=== PATIENT | female | born 1995 | race Caucasian/White ===

== ENCOUNTER → 2017-11-07 | Outpatient (CLI) | payer OTHER | END | disposition home or self-care (01) | LOC: C.LABSPEC 17:58 | PROVIDERS: ATTEND Physician Assistant | DX: Z12.4 Encounter for screening for malignant neoplasm of cervix (principal) ==

== ENCOUNTER → 2017-11-07 | Outpatient (CLI) | payer OTHER | END | disposition home or self-care (01) | LOC: C.PAPS 09:30 | PROVIDERS: ATTEND Physician Assistant | DX: Z01.419 Encounter for gynecological examination (general) (routine) without abnormal findings (principal) ==

== ENCOUNTER 2020-06-20 07:31 | Inpatient (IN) ==
[2020-06-20] MEDS ORDERED: OXYTOCIN 30 UNITS/500 ML BAG IV PRN ×3 (07:56→19:05)
[2020-06-20 08:14] LABS: Hematocrit (blood only) 35.3 % (37-47); Hemoglobin 12.5 g/dL (12.0-16.0); Mean Corpuscular Hemoglobin 32.3 pg (25-34); Mean Corpuscular Volume 91.2 fL (80-100); Mean Platelet Volume 10.9 fL (7.4-10.4); Platelet Count 133 K/uL (130-400); RDW Coefficient of Variation 13.2 % (11.5-14.5); RDW Standard Deviation 43.4 fL (36.4-46.3); Red Blood Count 3.87 M/uL (4.2-5.4); White Blood Count 8.63 K/uL (4.8-10.8)
[2020-06-20 08:18] LABS: Mean Corpuscular Hgb Conc 35.4 g/dL (32-36)
--- NOTE | 2020-06-20 08:20 | History & Physical Report ---
Date of Service June 20, 2020 Assessment & Plan (1) Active labor at term: PNL: Rh pos, RI, GBS neg, COVID neg Admit, labs, IV Epidural when desired; anesthesiology consult placed Proceed with induction of labor per Pitocin augmentation protocol. Anticipate (2) : Admission and Anticipated Discharge Date Admission Date: June 20, 2020 History of Present Illness Primary Care Provider: Everardo Hart is a 25 y/o female currently at 39 WGA with an AGUSTIN 06/27/20 as determined by LMP who is here for IOL due to LGA baby on US (EW 98%tile at 36 weeks). Patient is on 20mg Celexa po daily for a hx of depression. She has also been taking pNV, colace, and iron. Her is otherwise uncomplicated. + contractions started just prior to arrival; + movement; - fluid loss; - bloody show Had regular appointments with OB. Blood type: A+ Antibody screen: neg Labs 11/26/19 Rubella: Immune VDRL/RPR: nonreactive Gonorrhea: negative Chlamydia: negative HIV: negative HbSAg: negative GBS: Negative 05/30/20 COVID-19 negative 06/10/20 Other screens: cf/sma/panoram/quad declined Allergies Allergy/AdvReac Type Severity Reaction Status Date / Time No Known Allergies Allergy Verified 06/20/20 08:41 Home Medications Home Medications Medication Instructions Recorded Confirmed Type citalopram [Celexa] 20 mg PO DAILY 05/21/20 06/20/20 History vit no.[id number] 1 tab PO DAILY 05/21/20 06/20/20 History [ Vitamin] docusate sodium 100 mg capsule 100 mg PO DAILY 06/08/20 06/20/20 History ferrous sulfate 325 mg PO DAILY 06/08/20 06/20/20 History Patient History Medical History (Updated 06/20/20 @ 08:25 by Prisca Botello DO) Depression Encounter for anatomic survey Encounter for pre-operative examination Inguinal lymphadenopathy Nipple discharge Swollen lymph nodes Varicella vaccine Surgical History H/O lymph node biopsy (07/24/19) Right Inguinal Lymph Node Biopsy Dr. 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 Denies shortness of breath or cough. Denies chest pain. Denies breast pain. Denies dysuria or hematuria. Denies leg pain or leg swelling. Denies headache or changes in vision. Physical Exam Physical Exam: General: Alert, oriented. No acute distress. Cardiac: Regular rate and rhythm, no murmurs/rubs/gallops. Respiratory: Clear to auscultation bilaterally a/p, no wheezes/rales/rhonchi. No increased work of breathing. Symmetrical chest rise. No respiratory distress. Abdomen: Gravid. Vertex position. + heart tones. + palpable contractions. EFW 7-8# Pelvic: Dilation 3-4cm; Effacement 70%; Station -[address] Devlin External FHT and external uterine monitors used; Category I tracing; moderate FHT variability. Lower Extremities: No lower extremity edema or swelling. No deep calf pain. Results & Data ([facility]) Vital Signs (Past 12 Hours) Vital Signs Temp Pulse Resp BP 06/20/20 07:38 36.8 C 71 20 138/86 Laboratory Results Labs at admission today H.5 Hct: 35.3% WBC: 8.63 Plt: 133 Supervising Physician Co-Signing Physician Notes Resident Physician Supervision Note: I interviewed and examined the patient. Discussed with Dr. Botello and agree with findings and plan as documented in the note. Any exceptions or clarifications are listed here: Patient is a at 39 weeks here for elective induction for concern for LGA. Favorable cervix. Category one fetus. Plan pitocin induction, arom. epidural on demand. Anticipate . Documented By: Migdalia Arboleda MD, FACOG
[2020-06-20] MEDS: LACTATED RINGER'S 1,000 ML IV PRN ×2 (08:30→12:55)
[2020-06-20] MEDS ORDERED: fentaNYL 2MCG/ML ROPIV 1.25MG/ML 100 ML BAG EPI ONE (12:10)
[2020-06-20] MEDS ORDERED: BUPIVACAINE 0.25% 30 ML VIAL ONE (12:10)
[2020-06-20] MEDS ORDERED: fentaNYL citrate 100 MCG/2 ML VIAL ONE (12:10)
[2020-06-20] MEDS ORDERED: ePHEDrine sulfate 50 MG/ML AMP ONE (12:10)
--- NOTE | 2020-06-20 12:17 | Anesthesiology Consultation ---
Date of Service June 20, 2020 Assessment & Plan ASA ASA2 Proposed Anesthesia Anesthesia Type: General and Labor Epidural Risk / Benefits Reviewed With: PT / POA / Parent / Guardian, Accepts Plan and Informed Consent Obtained History Height/Weight Height: 5 ft 7.5 in Weight: 74.843 kg Allergies Allergy/AdvReac Type Severity Reaction Status Date / Time No Known Allergies Allergy Verified 06/20/20 08:41 Medications Home Medications Medication Instructions Recorded Confirmed Last Taken citalopram [Celexa] 20 mg PO DAILY 05/21/20 06/20/20 06/19/20 20:00 vit no.[id number] 1 tab PO DAILY 05/21/20 06/20/20 06/19/20 20:00 [ Vitamin] docusate sodium 100 mg capsule 100 mg PO DAILY 06/08/20 06/20/20 06/19/20 20:00 ferrous sulfate 325 mg PO DAILY 06/08/20 06/20/20 06/19/20 20:00 Active Medications Generic Name Dose Route Start Last Admin Trade Name Natanq PRN Reason Stop Dose Admin Lactated Ringer's 1,000 mls @ 125 mls/hr 06/20/20 07:56 06/20/20 12:55 Lr IV 06/22/20 07:55 125 mls/hr .Q8H PRN Administration L&D Protocol Protocol Oxytocin 30 units in 500 mls @ 9 mls/hr 06/20/20 07:56 06/20/20 10:45 Pitocin IV 06/22/20 07:55 0.54 units/hr .Q24H PRN 9 mls/hr Labor Induction/Augmentation Titration Protocol 0.54 UNITS/HR Past Medical History Medical History Depression Encounter for anatomic survey Encounter for pre-operative examination Inguinal lymphadenopathy Nipple discharge Swollen lymph nodes Varicella vaccine Exercise / Class Metabolic Activity II 4-5 Yardwork/Stairs/Walk up hill Past Family History Family History Grandmother (Maternal) Breast cancer Grandfather (Maternal) Diabetes Heart disease Myocardial infarction Grandmother (Paternal) Cancer vulvar Vulvar cancer Past Surgical History Surgical History H/O lymph node biopsy (07/24/19) Right Inguinal Lymph Node Biopsy Dr. Dunlap 07/24/19 History of excision of pilonidal cyst [place] teeth removed Past Anesthesia History No Hx of Anesthesia Complications and No Family Hx of Anesthesia Complications History of PONV No Hx of PONV and No Hx of Motion Sickness Social History Smoking Status: Never smoker Hx Alcohol Use: No Hx Substance Use: No substance use type: does not use Review of Systems denies fever/cough/ colds/ chest pain/ SOB/ YASH Constitutional: no fever and no chills Respiratory: no cough and no dyspnea denies YASH Cardiovascular: no chest pain and no dyspnea on exertion Physical Exam Vital Signs Last Vital Signs Temp 37.0 C 06/20/20 11:34 Pulse 76 06/20/20 12:15 Resp 20 06/20/20 11:34 BP 140/90 06/20/20 11:34 Pulse Ox 94 06/20/20 12:15 ENMT Mouth: no TMJ abnormality and no dentition abnormality Thyromental Distance: > or= 3.5 Finger Breadths Mallampati Class: II Neck neck extension not limited Respiratory normal respiratory effort; no respiratory distress Auscultation: lungs clear to auscultation bilaterally Cardiovascular Rate/Rhythm: regular rate and regular rhythm Neurologic moves all extremities Psychiatric Orientation: alert and oriented x 3 Testing Laboratory Results 06/20/20 08:03
[2020-06-20] MEDS ORDERED: ePHEDrine sulfate 50 MG/ML AMP IV PRN ×2 (13:32→13:33)
[2020-06-20] MEDS ORDERED: DiphenhydrAMINE HCL 50 MG/ML VIAL IV PRN ×2 (13:32→13:33)
[2020-06-20] MEDS ORDERED: fentaNYL 2MCG/ML ROPIV 1.25MG/ML 100 ML BAG EPI PRN ×2 (13:32→13:33)
[2020-06-20] MEDS ORDERED: NALOXONE HCL 0.4 MG/1 ML VIAL/CARP IV PRN ×2 (13:32→13:33)
[2020-06-20] MEDS ORDERED: NALOXONE HCL 1 MG in SODIUM CHLORIDE 0.9% 1000ML 1,000 ML IV PRN ×2 (13:32→13:33)
[2020-06-20] MEDS ORDERED: ONDANSETRON INJ 2 MG/ML 2 ML VIAL IV PRN ×2 (13:32→13:33)
--- NOTE | 2020-06-20 14:04 | Labor Progress Brief Note ---
Date of Service June 20, 2020 Subjective comfortable with epidural Assessment & Plan (1) Elective induction of labor planned: continue current management. fetus reassuring category one. anticipate . Admission and Anticipated Discharge Date Admission Date: June 20, 2020 Physical Exam Constitutional: WD/WN, vitals as above Psychiatric: A+Ox3, euthymic affect Genitourinary: cx--/-2 arom--copious clear toco--q2-3min, pit at 9 efm--130s wtih mod variability, accels to 150s, no decels Results & Data ([facility]) Vital Signs (Past 12 Hours) Vital Signs Temp Pulse Resp BP Pulse Ox 06/20/20 13:57 67 97 06/20/20 13:55 74 136/80 06/20/20 13:52 70 96 06/20/20 13:47 60 96 06/20/20 13:42 64 95 06/20/20 13:40 65 142/84 H 06/20/20 13:37 69 96 06/20/20 13:35 68 137/83 06/20/20 13:32 66 96 06/20/20 13:31 63 135/76 06/20/20 13:27 71 98 06/20/20 13:24 66 134/76 06/20/20 13:22 71 141/77 H 100 06/20/20 13:20 71 139/81 06/20/20 13:18 84 135/85 06/20/20 13:17 79 100 06/20/20 13:16 73 137/80 06/20/20 13:12 76 100 06/20/20 13:07 84 100 06/20/20 13:02 79 100 06/20/20 12:57 73 99 06/20/20 12:15 76 94 06/20/20 11:34 37.0 C 69 20 140/90 06/20/20 10:36 60 143/93 H 06/20/20 09:37 62 20 138/90 06/20/20 07:38 36.8 C 71 20 138/86 Coding Level of Care Code None Diagnoses Elective induction of labor planned
--- NOTE | 2020-06-20 17:05 | Labor Progress Brief Note ---
Date of Service June 20, 2020 Subjective Feeling some contractions Assessment & Plan (1) Elective induction of labor planned: begin stage 2, fetus category one. anticipate . Admission and Anticipated Discharge Date Admission Date: June 20, 2020 Physical Exam Constitutional: WD/WN, vitals as above Psychiatric: A+Ox3, euthymic affect Genitourinary: cx--c/c/+2-3 toco--q2min, pit at 9 efm--120s with mod variability, small accels , no decels Results & Data ([facility]) Vital Signs (Past 12 Hours) Vital Signs Temp Pulse Resp BP Pulse Ox 06/20/20 17:02 74 99 06/20/20 16:57 62 96 06/20/20 16:56 57 L 106/55 L 06/20/20 16:52 66 97 06/20/20 16:50 65 94 06/20/20 16:47 59 L 95 06/20/20 16:42 61 96 06/20/20 16:41 57 L 109/58 L 06/20/20 16:37 57 L 95 06/20/20 16:32 60 95 06/20/20 16:27 61 96 06/20/20 16:26 56 L 110/59 L 06/20/20 16:22 62 97 06/20/20 16:17 61 97 06/20/20 16:12 36.9 C 74 18 141/59 H 97 06/20/20 16:07 60 99 06/20/20 16:02 72 95 06/20/20 15:57 65 131/81 96 06/20/20 15:52 63 96 06/20/20 15:47 67 95 06/20/20 15:42 72 96 06/20/20 15:40 83 132/91 06/20/20 15:37 68 99 06/20/20 15:32 69 97 06/20/20 15:27 78 97 06/20/20 15:26 75 127/79 06/20/20 15:22 71 96 06/20/20 15:17 78 97 06/20/20 15:12 65 96 06/20/20 15:10 65 112/70 06/20/20 15:07 65 97 06/20/20 15:02 65 98 06/20/20 14:57 64 97 06/20/20 14:56 72 133/87 06/20/20 14:54 18 06/20/20 14:52 58 L 96 06/20/20 14:47 59 L 96 06/20/20 14:42 57 L 95 06/20/20 14:40 56 L 110/63 06/20/20 14:37 61 97 06/20/20 14:32 58 L 95 06/20/20 14:27 59 L 96 06/20/20 14:26 56 L 16 113/61 06/20/20 14:22 62 96 06/20/20 14:17 67 97 06/20/20 14:12 65 97 06/20/20 14:11 60 121/63 06/20/20 14:07 61 96 06/20/20 14:02 64 96 06/20/20 13:57 67 97 06/20/20 13:55 74 136/80 06/20/20 13:52 70 96 06/20/20 13:47 60 96 06/20/20 13:42 64 95 06/20/20 13:40 65 142/84 H 06/20/20 13:37 69 96 06/20/20 13:35 68 137/83 06/20/20 13:32 66 96 06/20/20 13:31 63 135/76 06/20/20 13:27 71 98 06/20/20 13:24 66 134/76 06/20/20 13:22 71 141/77 H 100 06/20/20 13:20 71 139/81 06/20/20 13:18 84 135/85 06/20/20 13:17 79 100 06/20/20 13:16 73 137/80 06/20/20 13:12 76 100 06/20/20 13:07 84 100 06/20/20 13:02 79 100 06/20/20 12:57 73 99 06/20/20 12:15 76 94 06/20/20 11:34 37.0 C 69 20 140/90 06/20/20 10:36 60 143/93 H 06/20/20 09:37 62 20 138/90 06/20/20 07:38 36.8 C 71 20 138/86 Coding Level of Care Code None Diagnoses Elective induction of labor planned
[2020-06-20] MEDS ORDERED: ACETAMINOPHEN 325 MG TAB PO PRN (18:38)
[2020-06-20] MEDS ORDERED: OXYCODONE/ACETAMINOPHEN 5mg/325mg TAB PO PRN (18:38)
--- NOTE | 2020-06-20 18:42 | Delivery Summary ---
Vaginal Delivery Summary Date of Service June 20, 2020 Vaginal Delivery Summary Pre-operative Diagnosis: at 39 weeks suspect lga baby Post-operative Diagnosis: same lga baby Procedure: pitocin induction epidural arom stellate vaginal tear and second degree tear with repair EBL: 450cc Anesthesia: epdural Procedure: The patient pushed for about 35 min to deliver a viable female infant in kalyani position. The nose and mouth were bulb suctioned on the perineum and the rest of the was then delivered without difficulty. The nose and mouth were again bulb suctioned and the was placed in the maternal abdomen for drying and attention. Cord was clamped and cut at 30 secs of life and the infant was then taken to the bed for drying and attention. Cord blood and segment obtained. Placenta delivered spontaneous, intact with a three vessel cord. Cervix/sulci/rectum were intact. A stellate vaginal tear and a second degree perineal laceration was repaired in the normal standard fashion. Hemostasis obtained with dilute pitocin and fundal massage. Apgars were 7/8. Mother and baby doing well at the end of the delivery. [facility] Vaginal Delivery Charge Vaginal Delivery Codes: 51945 global code for the antepartum, delivery, and post-
[2020-06-20] MEDS ORDERED: SUPERCREAM 0.870% 15 GM JAR EXT PRN (19:05)
[2020-06-20] MEDS ORDERED: DIPHTHERIA/TETANUS/PERTUSSIS 0.5 ML SYR/VIAL IM ONE (19:05)
[2020-06-20] MEDS ORDERED: bisacodyL 10 MG SUPP PR PRN (19:05)
[2020-06-20] MEDS ORDERED: HYDROCORTISONE ACETATE 25 MG SUPP PR PRN (19:05)
--- NOTE | 2020-06-20 19:07 | Anesthesiology Progress Note ---
Date of Service June 20, 2020 Anesthesia Post Procedure Vital Signs Vital Signs: Temp Pulse Resp BP Pulse Ox 06/20/20 19:01 79 121/71 06/20/20 18:46 77 122/74 06/20/20 18:31 80 117/69 06/20/20 18:16 88 112/65 06/20/20 18:15 92 H 91 06/20/20 18:12 77 100 06/20/20 18:10 70 122/68 06/20/20 18:07 70 99 06/20/20 18:02 80 100 06/20/20 17:57 93 H 100 06/20/20 17:55 82 120/55 L 06/20/20 17:52 90 100 06/20/20 17:47 93 H 98 06/20/20 17:42 106 H 94 06/20/20 17:40 118 H 133/62 06/20/20 17:37 112 H 99 06/20/20 17:32 101 H 100 06/20/20 17:27 94 H 100 06/20/20 17:22 88 99 06/20/20 17:19 91 H 91 06/20/20 17:17 89 99 06/20/20 17:14 94 H 92 06/20/20 17:12 85 99 06/20/20 17:11 80 131/83 06/20/20 17:07 92 H 100 06/20/20 17:02 74 99 06/20/20 16:57 62 96 06/20/20 16:56 57 L 18 106/55 L 06/20/20 16:52 66 97 06/20/20 16:50 65 94 06/20/20 16:47 59 L 95 06/20/20 16:42 61 96 06/20/20 16:41 57 L 109/58 L 06/20/20 16:37 57 L 95 06/20/20 16:32 60 95 06/20/20 16:27 61 96 06/20/20 16:26 56 L 110/59 L 06/20/20 16:22 62 97 06/20/20 16:17 61 97 06/20/20 16:12 36.9 C 74 18 141/59 H 97 06/20/20 16:07 60 99 06/20/20 16:02 72 95 06/20/20 15:57 65 131/81 96 06/20/20 15:52 63 96 06/20/20 15:47 67 95 06/20/20 15:42 72 96 06/20/20 15:40 83 132/91 06/20/20 15:37 68 99 06/20/20 15:32 69 97 06/20/20 15:27 78 97 06/20/20 15:26 75 127/79 06/20/20 15:22 71 96 06/20/20 15:17 78 97 06/20/20 15:12 65 96 06/20/20 15:10 65 112/70 06/20/20 15:07 65 97 06/20/20 15:02 65 98 06/20/20 14:57 64 97 06/20/20 14:56 72 133/87 06/20/20 14:54 18 06/20/20 14:52 58 L 96 06/20/20 14:47 59 L 96 06/20/20 14:42 57 L 95 06/20/20 14:40 56 L 110/63 06/20/20 14:37 61 97 06/20/20 14:32 58 L 95 06/20/20 14:27 59 L 96 06/20/20 14:26 56 L 16 113/61 06/20/20 14:22 62 96 06/20/20 14:17 67 97 06/20/20 14:12 65 97 06/20/20 14:11 60 121/63 06/20/20 14:07 61 96 06/20/20 14:02 64 96 06/20/20 13:57 67 97 06/20/20 13:55 74 136/80 06/20/20 13:52 70 96 06/20/20 13:47 60 96 06/20/20 13:42 64 95 06/20/20 13:40 65 142/84 H 06/20/20 13:37 69 96 06/20/20 13:35 68 137/83 06/20/20 13:32 66 96 06/20/20 13:31 63 135/76 06/20/20 13:27 71 98 06/20/20 13:24 66 134/76 06/20/20 13:22 71 141/77 H 100 06/20/20 13:20 71 139/81 06/20/20 13:18 84 135/85 06/20/20 13:17 79 100 06/20/20 13:16 73 137/80 06/20/20 13:12 76 100 06/20/20 13:07 84 100 06/20/20 13:02 79 100 06/20/20 12:57 73 99 06/20/20 12:15 76 94 06/20/20 11:34 37.0 C 69 20 140/90 06/20/20 10:36 60 143/93 H 06/20/20 09:37 62 20 138/90 06/20/20 07:38 36.8 C 71 20 138/86 Transfer of Care Handoff Completed per policy Notes Mental Status: alert / awake / arousable and participated in evaluation Patient Amnestic to Procedure: Yes Nausea / Vomiting: adequately controlled Pain: adequately controlled Airway Patency, RR, SpO2: stable & adequate BP & HR: stable & adequate Hydration State: stable & adequate Anesthetic Complications: no major complications apparent and Pt Satisfied with anesthetic care
[2020-06-20] MEDS: BENZOCAINE 20% AER SPR 82.5 GM CAN EXT PRN (20:19)
[2020-06-20] MEDS: IBUPROFEN 600 MG TAB PO PRN (20:19)
[2020-06-20] MEDS: DOCUSATE SODIUM 100 MG CAP PO SCH (20:19)
[2020-06-21] MEDS: IBUPROFEN 600 MG TAB PO PRN ×5 (00:14→18:00)
[2020-06-21 05:52] LABS: Hematocrit (blood only) 26.5 % (37-47); Hemoglobin 9.5 g/dL (12.0-16.0)
--- NOTE | 2020-06-21 06:42 | Obstetrical Progress Note ---
Date of Service <Prisca Botello DO - Last Filed: 06/21/20 07:21> June 21, 2020 Assessment & Plan <Prisca Botello DO - Last Filed: 06/21/20 07:21> (1) Normal course: - Overall feels well today. Eating well, voiding well. Pt has not yet ambulated independently. - Pain well controlled with ibuprofen 600mg Q4H PRN - Routinepostpartum care -- OOB, ambulation, diet progression as tolerated - After discharge will have 6 week follow-up with Dr. Arboleda - Plan for d/c home tomorrow (2) Positional lightheadedness: - Lightheadedness with changes in position - H/H was 9.5/26.5% this AM. Will start supplemental po Iron - Will continue to monitor patient Subjective <Prisca Botello DO - Last Filed: 06/21/20 07:21> Tatianna Hart is a 25 y/o female who is PPD #1 following IOL with epidural and at 39 weeks. Pt was induced due to LGA baby on u/s. She reports feeling well overall this morning. Minimal abdominal cramping and 3/10 pain well managed on analgesics. Voiding without dysuria or difficulty. Tolerating meals overnight without nausea or vomiting. Patient has been able to ambulate some but it is noted that she has experienced lightheadedness with changing position and ambulating. She did have a near-syncopal episode last night with the lightheadedness but pt denies syncope or LOC. + passing gas but no bowel movement. Has persistent lochia with some improvement this morning. Currently . Review of Systems Denies fever or chills. Denies shortness of breath or cough. Denies chest pain. Denies breast pain. Denies dysuria. Denies leg pain or leg swelling. + lightheadedness. Denies headache or changes in vision. Physical Exam <Prisca Botello DO - Last Filed: 06/21/20 07:21> General: Alert, oriented. No acute distress. Cardiac: Regular rate and rhythm. No murmurs. Respiratory: Clear to auscultation bilaterally a/p, no wheezes/rales/rhonchi. No increased work of breathing. Symmetrical chest rise. No respiratory distress. Abdomen: Soft, nontender, nondistended. Bowel sounds present. Uterus: Uterine fundus firm, palpable 2 cm above umbilicus. Lower Extremities: No lower extremity edema or swelling. No deep calf pain. Magui n's negative bilaterally. Results & Data ([facility]) <Prisca Botello DO - Last Filed: 06/21/20 07:21> Vital Signs (Past 12 Hours) Vital Signs Temp Pulse Pulse Resp BP BP Pulse Ox 06/21/20 03:30 36.9 C 65 18 127/85 97 06/20/20 23:25 36.8 C 73 16 118/77 96 06/20/20 20:50 37.0 C 79 16 123/80 99 06/20/20 20:16 37.0 C 94 H 18 124/81 06/20/20 20:01 74 16 122/71 06/20/20 19:47 80 18 123/70 06/20/20 19:16 80 18 126/73 06/20/20 19:01 79 16 121/71 06/20/20 18:46 77 122/74 Laboratory Results H/H 9.5/26.5% at 0536 this AM <Migdalia Arboleda MD, FACOG - Last Filed: 06/21/20 07:30> Co-Signing Physician Notes Resident Physician Supervision Note: I interviewed and examined the patient. Discussed with Dr. Botello and agree with findings and plan as documented in the note. Any exceptions or clarifications are listed here: Doing fairly well. patient has voided 800cc. Has not done well with standing and ambulating overnight. Will monitor closely today. Anticipated drop h/h. Documented By: Migdalia Arboleda MD, FACOG
[2020-06-21] MEDS ORDERED: PRENATAL VITAMIN 1 TAB PO SCH (08:00)
[2020-06-21] MEDS: DOCUSATE SODIUM 100 MG CAP PO SCH (08:18)
[2020-06-21] MEDS ORDERED: CITALOPRAM 20 MG TAB PO SCH (09:00)
[2020-06-21] MEDS ORDERED: FERROUS SULFATE 325 MG TAB PO SCH (09:00)
[2020-06-21 09:39] VITALS: O2SAT 100
[2020-06-21 16:37] VITALS: TEMP 98.4
[2020-06-21 16:49] VITALS: BP 131/81; PULSE 76
[2020-06-21] MEDS: BENZOCAINE 20% AER SPR 82.5 GM CAN EXT PRN (18:33)
--- NOTE | 2020-06-21 19:06 | Obstetrical Progress Note ---
Date of Service June 21, 2020 Assessment & Plan (1) exam: pt feels well and ready for d/c. bp looks good. she does have a nurse mother in law who can check her bp. told her s/sx to watch out for to call us re: need for office eval. she verbalized understanding. Admission and Anticipated Discharge Date Admission Date: June 20, 2020 Subjective pt desires d/c home, baby d/c'd per peds. doing well ambulating, no dizziness, voiding and eating fine. bleeding lessening. i had been notified nursing about an elevated bp and wanted bp checked prior to d/c. pt denies mariscal or visual change or worsening swelling Physical Exam Constitutional: WD/WN, vitals as above Results & Data ([facility]) Vital Signs (Past 12 Hours) Vital Signs Temp Pulse Resp BP Pulse Ox 06/21/20 17:05 98.4 F 76 18 131/81 100 06/21/20 16:48 76 131/81 06/21/20 16:00 98.4 F 68 18 144/90 H 100 06/21/20 11:30 98.2 F 64 18 137/87 100 06/21/20 07:45 98.1 F 78 18 129/82 100 PG Care Time/CCT Total # of Minutes Spent Total Time Spent with Patient: Total time spent is greater than 50% in coordination of care (as documented) at patient's floor/unit and/or counseling patient: Coding Level of Care Code None Diagnoses exam Z39.2
[2020-06-21] MEDS ORDERED: bisacodyL 5 MG TABEC PO SCH (20:00)
== END 2020-06-21 19:05 | disposition home or self-care (01) | DRG 807 ==
LOC: 4S1 07:31 → 4S2 21:42

== ENCOUNTER 2024-02-04 07:42 | Inpatient (IN) ==
[2024-02-04] MEDS ORDERED: LIDOCAINE 1% LOCAL 20 ML VIAL INFIL PRN (07:52)
[2024-02-04] MEDS ORDERED: OXYTOCIN 30 UNITS/NSS 30 UNITS/500 ML BAG IV PRN ×2 (07:52→19:21)
--- NOTE | 2024-02-04 08:25 | Obstetrical Progress Note ---
Date of Service February 04, 2024 Assessment & Plan (1) 39 weeks gestation of : (2) Non-dilated cervix in term : Plan sanchez ripening balloon placed after informed consent. pitocin ordered to begin now. pt and partner agreeable. efw 9#. fhts categ 1. Admission and Anticipated Discharge Date Admission Date: February 04, 2024 Subjective pt here for induction with unfavorable cx. prior LGA. Physical Exam Constitutional: WD/WN, vitals as above Genitourinary: Manual OB Exam: + cervical dilation 1 cm OB Exam Monitor Tracing: + external FHT monitor used, + external uterine monitor used, + category I and + normal FHT variability PROCEDURE: sse cx visualized, grasped on ant lip with ring forcep, sanchez through os and balloon inflated with 40cc sterile water. Spec removed, sanchez taped to leg. pt clemencia well. Results & Data Vital Signs (Past 12 Hours) Vital Signs Temp Pulse Resp BP 02/04/24 08:14 82 123/70 02/04/24 07:57 98.4 F 16 PG Care Time/CCT Total # of Minutes Spent Total Time Spent with Patient: Total time spent is greater than 50% in coordination of care (as documented) at patient's floor/unit and/or counseling patient: Coding Level of Care Code None Diagnoses 39 weeks gestation of Z3A.39 Non-dilated cervix in term O34.40
[2024-02-04 08:36] LABS: Hematocrit (blood only) 35.4 % (37.0-47.0); Hemoglobin 12.5 g/dl (12.0-16.0); Mean Corpuscular Hemoglobin 31.8 pg (25.0-34.0); Mean Corpuscular Hgb Conc 35.3 g/dL (32.0-36.0); Mean Corpuscular Volume 90.1 fL (80.0-100.0); Mean Platelet Volume 11.1 fL (9.4-12.4); Platelet Count 147 K/uL (130-400); RDW Coefficient of Variation 12.8 % (11.5-14.5); RDW Standard Deviation 42.1 fL (36.4-46.3); Red Blood Count 3.93 M/uL (4.20-5.40); White Blood Count 7.81 K/ul (4.8-10.8)
[2024-02-04] MEDS: OXYTOCIN 30 UNITS/NSS 30 UNITS/500 ML BAG IV PRN (08:46)
[2024-02-04] MEDS: LACTATED RINGER'S 1,000 ML IV PRN (08:46)
--- NOTE | 2024-02-04 08:52 | History & Physical Report ---
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 10lbs regular cycles denies hx stis Allergies Allergy/AdvReac Type Severity Reaction Status Date / Time No Known Allergies Allergy Verified 02/04/24 08:37 Home Medications Medication Instructions Recorded Confirmed Type citalopram 20 mg tablet (Celexa) 20 mg PO DAILY #30 tabs 10/03/20 02/04/24 Rx ondansetron HCl 4 mg tablet 4 mg PO TID PRN nausea and 07/05/23 02/04/24 Rx vomiting 5 days #30 tabs pren vit comb.1-iron cb-FA-DSS 90 tab PO 02/04/24 02/04/24 History mg-1 mg-50 mg tablet Patient History Medical History Depression Inguinal lymphadenopathy Pilonidal cyst Swollen lymph nodes Varicella vaccine Surgical History H/O lymph node biopsy (07/24/19) History of excision of pilonidal cyst [place] teeth removed Family History Grandmother (Maternal) Breast cancer Grandfather (Maternal) Diabetes Heart disease Myocardial infarction Grandmother (Paternal) Cancer Vulvar cancer Denies family history of Ovarian cancer Colorectal cancer Social History Smoking Status: Never smoker Second Hand Exposure: No; Do You Dip or Chew Tobacco: No; Hx Alcohol Use: No Hx Substance Use: No Preferred Language: Yoruba Communication Ability: Effective Histology Aide Required: No Beliefs That Will Affect Care: None marital status: marital status details: Evangelist Hart [phone] Current Living Situation: Spouse and Family Current Living Situation Comment: lives with spouse, daughter current occupational status: employed 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 Barajas, see prior note Results & Data Vital Signs (Past 12 Hours) Vital Signs Temp Pulse Resp BP 02/04/24 08:14 82 123/70 02/04/24 07:57 98.4 F 16 Laboratory Results OB Labs: Blood Type A Positive 07/05/23 Antibody Screen NEGATIVE 07/05/23 Hemoglobin 11.6 g/dl (12.0-16.0) L 11/18/23 Hematocrit 34.0 % (37.0-47.0) L 11/18/23 Mean Corpuscular Volume 89.2 fL (80.0-100.0) 07/05/23 Platelet Count 152 K/uL (130-400) 07/05/23 Rubella IgG Antibody Immune (Immune) 07/05/23 Rapid Plasma Reagin Nonreactive (Nonreactive) 07/05/23 Hepatitis B Surface Antigen Neg (Neg) 11/26/19 Hepatitis B Surface Antigen. NON-REACTIVE (NON-REACTIVE) 07/05/23 Hepatitis C Antibody (EIA) NON-REACTIVE (NON-REACTIVE) 07/05/23 HIV (1&2) Ab and P24 Ag, 4th Gener Neg (Neg) 11/26/19 HIV (1&2) Ag and Ab Confirmation NON-REACTIVE (NON-REACTIVE) 07/05/23 Glucose 1 Hour 50 gm Load 137 mg/dl (70-130) H 11/18/23 OB Optional Labs: Chlamydia trachomatis RNA Not Detected (NotDetected) 07/05/23 Neisseria gonorrhoeae RNA Not Detected (NotDetected) 07/05/23 Labs Reviewed: Declines genetics--mln GBS neg Diagnostic Findings ant plac, 01/12 EFW 76% Coding Level of Care Code None Diagnoses Encounter for supervision of normal in multigravida Z34.80
[2024-02-04] MEDS ORDERED: fentaNYL citrate PF 100 MCG/2 ML VIAL ONE (11:36)
[2024-02-04] MEDS ORDERED: SODIUM CHLORIDE 0.9% PF INJ 10 ML VIAL ONE (11:36)
[2024-02-04] MEDS ORDERED: ePHEDrine sulfate 50 MG/ML AMP ONE (11:36)
--- NOTE | 2024-02-04 11:48 | Anesthesiology Consultation ---
Date of Service February 04, 2024 Assessment & Plan Chart Review Chart Review: Acceptable Risk for Labor Epidural Consults Requested none ASA ASA2 Proposed Anesthesia Anesthesia Type: Labor Epidural Risk / Benefits Reviewed With: PT / POA / Parent / Guardian, Accepts Plan and Informed Consent Obtained History Height/Weight Height: 5 ft 7.5 in Weight: 78.018 kg Allergies Allergy/AdvReac Type Severity Reaction Status Date / Time No Known Allergies Allergy Verified 02/04/24 08:37 Medications Home Medications Medication Instructions Recorded Confirmed Last Taken citalopram 20 mg tablet (Celexa) 20 mg PO DAILY #30 tabs 10/03/20 02/04/24 02/03/24 0800 ondansetron HCl 4 mg tablet 4 mg PO TID PRN nausea and 07/05/23 02/04/24 01/28/24 vomiting 5 days #30 tabs 0800 pren vit comb.1-iron cb-FA-DSS 90 1 tab PO 1XD 02/04/24 02/04/24 02/03/24 mg-1 mg-50 mg tablet 0800 Active Medications Generic Name Dose Route Start Last Admin Trade Name Freq PRN Reason Stop Dose Admin Oxytocin 30 units in 500 mls @ 9 mls/hr 02/04/24 07:52 02/04/24 11:44 Pitocin 30 Units/Nss IV 02/06/24 07:51 0.66 units/hr .Q24H PRN 11 mls/hr Labor Induction/Augmentation Titration Protocol 0.54 UNITS/HR Lactated Ringer's 1,000 mls @ 125 mls/hr 02/04/24 07:52 02/04/24 08:46 Lr IV 02/06/24 07:51 125 mls/hr .Q8H PRN Administration L&D Protocol Protocol Past Medical History Medical History Pilonidal cyst Varicella vaccine Depression Swollen lymph nodes Inguinal lymphadenopathy Exercise / Class Metabolic Activity II 4-5 Yardwork/Stairs/Walk up hill Past Family History Family History Grandmother (Maternal) Breast cancer Grandfather (Maternal) Diabetes Heart disease Myocardial infarction Grandmother (Paternal) Cancer vulvar Vulvar cancer Denies family history of Ovarian cancer Colorectal cancer Past Surgical History Surgical History H/O lymph node biopsy (07/24/19) Right Inguinal Lymph Node Biopsy Dr. Dunlap 07/24/19 [place] teeth removed History of excision of pilonidal cyst Past Anesthesia History No Hx of Anesthesia Complications and No Family Hx of Anesthesia Complications History of PONV No Hx of PONV and No Hx of Motion Sickness Social History Smoking Status: Never smoker Do You Dip or Chew Tobacco: No Hx Alcohol Use: No Hx Substance Use: No substance use type: does not use Physical Exam Vital Signs Last Vital Signs Temp 98.4 F 02/04/24 07:57 Pulse 74 02/04/24 10:33 Resp 16 02/04/24 07:57 BP 118/63 02/04/24 10:33 ENMT Mouth: no dentition abnormality Thyromental Distance: > or= 3.5 Finger Breadths Mallampati Class: II Neck normal visual inspection Respiratory normal respiratory effort Auscultation: lungs clear to auscultation bilaterally Cardiovascular Rate/Rhythm: regular rate and regular rhythm Testing Laboratory Results 02/04/24 08:11
[2024-02-04] MEDS: LIDOCAINE 2%/EPINEPHRINE 1:200,000 20 ML PF ONE (12:07)
[2024-02-04] MEDS: BUPIVACAINE 0.25% PF 30 ML VIAL ONE (12:07)
[2024-02-04] MEDS: fentANYL 2 MCG/ML BUPIVacaine 0.125%-NSS 100ML BAG ONE (12:07)
[2024-02-04] MEDS ORDERED: SODIUM CHLORIDE 0.9% PF INJ 10 ML VIAL EPI PRN (12:09)
[2024-02-04] MEDS ORDERED: LIDOCAINE 2% MPF LOCAL 5 ML VIAL EPI PRN (12:09)
[2024-02-04] MEDS ORDERED: SODIUM CHLORIDE 0.9% PF INJ 10 ML VIAL EPI STA (12:09)
[2024-02-04] MEDS ORDERED: BUPIVACAINE 0.25% PF 30 ML VIAL EPI PRN (12:09)
[2024-02-04] MEDS ORDERED: NALBUPHINE HCL 5 MG in SYRINGE 0 ML IV PRN (12:09)
[2024-02-04] MEDS ORDERED: ROPIVACAINE 0.5% PF 5 MG/ML 20 ML VIAL EPI PRN (12:09)
[2024-02-04] MEDS ORDERED: diphenhydrAMINE 50 MG/ML VIAL IV PRN (12:09)
[2024-02-04] MEDS ORDERED: ePHEDrine sulfate 50 MG/ML AMP IV PRN (12:09)
[2024-02-04] MEDS ORDERED: ONDANSETRON INJ 2 MG/ML 2 ML VIAL IV PRN (12:09)
[2024-02-04] MEDS ORDERED: fentaNYL citrate PF 100 MCG/2 ML VIAL EPI PRN (12:09)
[2024-02-04] MEDS ORDERED: LIDOCAINE 2%/EPINEPHRINE 1:200,000 20 ML PF EPI STA (12:09)
[2024-02-04] MEDS ORDERED: BUPIVACAINE 0.25% PF 30 ML VIAL EPI STA (12:09)
[2024-02-04] MEDS ORDERED: NALOXONE HCL 0.4 MG/1 ML VIAL/CARP IV PRN (12:09)
[2024-02-04] MEDS ORDERED: fentANYL 2 MCG/ML BUPIVacaine 0.125%-NSS 100ML BAG EPI PRN (12:09)
[2024-02-04] MEDS ORDERED: NALOXONE HCL 1 MG in SODIUM CHLORIDE 0.9% 1,000 ML IV PRN (12:09)
--- NOTE | 2024-02-04 13:18 | Labor Progress Brief Note ---
Date of Service February 04, 2024 Subjective Getting comfortable w/ epidural Assessment & Plan (1) Encounter for supervision of normal in multigravida: Plan: 28 yo at 39 wga presents for eiol, hx LGA VSS Fetus cat 1 Labor - sanchez out, now s/p arom. Pit at 11, continue induction GBS neg epidural in place Admission and Anticipated Discharge Date Admission Date: February 04, 2024 Physical Exam Genitourinary: Manual OB Exam: + cervical dilation 4 cm, + cervical effacement 50%, + station -2 and + amniotic fluid (arom clear) OB Exam Monitor Tracing: + external FHT monitor used, + external uterine monitor used and + category I (120/mod/+accel/-decel) Results & Data Vital Signs (Past 12 Hours) Vital Signs Temp Pulse Resp BP Pulse Ox 02/04/24 13:16 71 101/75 94 02/04/24 13:12 97 02/04/24 13:12 68 02/04/24 13:12 67 133/71 02/04/24 13:07 66 127/73 96 02/04/24 13:02 72 95 02/04/24 13:01 72 118/69 02/04/24 12:57 73 117/66 95 02/04/24 12:52 78 119/67 96 02/04/24 12:47 75 120/68 97 02/04/24 12:43 66 116/66 02/04/24 12:42 67 96 02/04/24 12:37 76 96 02/04/24 12:36 66 116/64 02/04/24 12:32 69 118/63 95 02/04/24 12:27 71 114/65 97 02/04/24 12:22 72 98 02/04/24 12:20 66 115/64 02/04/24 12:18 67 115/66 02/04/24 12:17 65 97 02/04/24 12:16 76 115/65 02/04/24 12:14 71 116/67 02/04/24 12:12 98 02/04/24 12:12 74 02/04/24 12:12 70 117/67 02/04/24 12:10 73 115/69 02/04/24 12:08 69 114/68 02/04/24 12:07 69 97 02/04/24 12:06 74 114/70 04/02/24 12:02 71 98 02/04/24 11:57 81 98 02/04/24 11:54 67 92 02/04/24 11:52 69 98 02/04/24 11:47 71 97 02/04/24 10:33 74 118/63 02/04/24 08:14 82 123/70 02/04/24 07:57 98.4 F 16 Coding Level of Care Code None Diagnoses Encounter for supervision of normal in multigravida Z34.80
[2024-02-04] MEDS: fentaNYL citrate PF 100 MCG/2 ML VIAL EPI STA (16:29)
--- NOTE | 2024-02-04 16:41 | Anesthesia Procedure Note ---
Date of Service February 04, 2024 Anesthesia Epidural Re-Dose Vital Signs Temp Pulse Resp BP Pulse Ox 98.4 F 62 16 120/73 96 02/04/24 14:00 02/04/24 16:38 02/04/24 14:00 02/04/24 16:35 02/04/24 16:38 Notes Pain Intensity: 6 Dilatation (cm): 6.0 Effacement (%): 50 Called by nursing to evaluate epidural as the patient is having increased pain. The epidural was re-dosed with the following medications after negative aspiration of the epidural catheter for CSF/HEME. 4mL of 0.25% Bupivacaine and 75 mcg fentanyl After Epidural Re-Dose Mental Status: alert / awake / arousable Pain: improving with treatment Airway Patency, RR, SpO2: stable & adequate BP & HR: stable & adequate
--- NOTE | 2024-02-04 19:06 | Delivery Summary ---
Vaginal Delivery Summary Date of Service February 04, 2024 Vaginal Delivery Summary [facility] PREOPERATIVE DIAGNOSIS: 1. Single intrauterine at 39 wga 2. Elective IOL 3. History of LGA POSTOPERATIVE DIAGNOSIS: 1. Single intrauterine at 39 wga 2. Elective IOL 3. History of LGA 4. Delivered PROCEDURE: 1. Normal spontaneous vaginal delivery. SURGEON: Ela Matta MD ANESTHESIA: Epidural. QUANTITATIVE BLOOD LOSS: 100 mL FLUIDS: Continuous LR. URINE OUTPUT: 600cc straight cath after delivery COMPLICATIONS: None. CONDITION: Stable. INDICATIONS: 28 yo at 39 wga presented for eIOL due to hx of macrosomia. Induction was begun with sanchez bulb and pitocin. Following sanchez bulb expulsion, she received an epidural for pain control. She underwent arom and progressed to complete and desired to push. FINDINGS: A viable male infant, weight 8lbs 6oz, with Apgars of 7 and 9 at 1 and 5 minutes respectively. SPECIMEN: Cord blood OPERATIVE REPORT: The patient progressed to 10 cm, 100% effaced and +2 station, pushed over intact perineum with anesthesia to deliver a viable male , weight and Apgars as above. Head of delivered in MARILEE position. Loose nuchal cord was present and delivered through. Body and shoulders were delivered without difficulty. was delivered to maternal abdomen and nursing staff. Delayed cord clamping was performed for 60 seconds. Cord was clamped and cut. Cord blood was obtained. Placenta delivered spontaneously intact with 3-vessel cord. IV oxytocin and fundal massage were given for excellent hemostasis. Vagina, cervix, perineum, and placenta were inspected. A left vaginal tear was noted and repaired using 3-0 vicryl. There was excellent hemostasis. A R vaginal and introital hemostatic abrasion were noted and did not need to be repaired. Sponge and needle counts correct x2. No sponges were left behind. Mother and stable in immediate period. [facility] Vaginal Delivery Charge Vaginal Delivery Codes: 77845 global code for the antepartum, delivery, and post- Delivery Type Details: [facility]
[2024-02-04] MEDS ORDERED: DIPHTHER/TETAN/PERTUS Vaccine (Tdap, Adol/Adult) 0.5mL IM ONE (19:21)
[2024-02-04] MEDS ORDERED: bisacodyL 10 MG SUPP PR PRN (19:21)
[2024-02-04] MEDS ORDERED: HYDROCORTISONE ACETATE 25 MG SUPP PR PRN (19:21)
[2024-02-04] MEDS ORDERED: ACETAMINOPHEN 325 MG TAB PO PRN (19:21)
--- NOTE | 2024-02-04 19:39 | Anesthesia Procedure Note ---
Date of Service February 04, 2024 Anesthesia Post Epidural Note Vital Signs Vital Signs: Temp Pulse Resp BP Pulse Ox 98.4 F 62 16 118/65 94 02/04/24 14:00 02/04/24 19:26 02/04/24 14:00 02/04/24 19:26 02/04/24 18:38 Notes Mental Status: alert / awake / arousable and participated in evaluation Nausea / Vomiting: adequately controlled Pain: adequately controlled Airway Patency, RR, SpO2: stable & adequate BP & HR: stable & adequate Hydration State: stable & adequate Neuraxial Anesthesia: was administered and sensory block is resolving Anesthetic Complications: no major complications apparent and Pt Satisfied with anesthetic care Epidural: Removed without complications and With tip intact
[2024-02-04] MEDS: CITALOPRAM 20 MG TAB PO SCH (22:21)
[2024-02-04] MEDS: DOCUSATE SODIUM 100 MG CAP PO SCH (22:21)
[2024-02-05] MEDS: IBUPROFEN 600 MG TAB PO PRN (03:33)
--- NOTE | 2024-02-05 06:06 | Obstetrical Progress Note ---
Date of Service <Sinan Munoz DO - Last Filed: 02/05/24 06:08> February 05, 2024 Assessment & Plan <Sinan Munoz DO - Last Filed: 02/05/24 06:08> (1) Encounter for assessment: Plan 28 y/o PPD#1 following : Eating well, voiding well, ambulating well Vitals reviewed, WNL Pain well controlled with Motrin Routine post care - OOB, ambulation, diet progression as tolerated Will have 6 week follow up with Dr. Matta <Ela Mtata MD - Last Filed: 02/05/24 07:11> (1) Encounter for assessment: Subjective <Sinan Munoz DO - Last Filed: 02/05/24 06:08> Ambulation: ambulating normally Voiding: no voiding problems Passing Gas:: Yes Diet Tolerance:: regular diet Lochia:: Small Feeding Type:: breast feeding pain well controlled with Motrin Review of Systems -Denies fever or chills -Denies dyspnea, chest pain, or palpitations -Denies dysuria -Denies headache or changes in vision Physical Exam <Sinan Munoz DO - Last Filed: 02/05/24 06:08> General: Alert and oriented. No acute distress Cardiac: Regular rate and rhythm, no murmurs appreciated Respiratory: Lungs clear to auscultation bilaterally, No increased work of breathing Abdominal: Soft, non-tender, non-distended. Bowel sounds present. Uterus: Uterine fundus firm, palpable below umbilicus Extremities: No lower extremity edema, calves non-tender bilaterally Results & Data <Sinan Munoz DO - Last Filed: 02/05/24 06:08> Vital Signs (Past 12 Hours) Vital Signs Temp Pulse Pulse Resp BP BP Pulse Ox 02/05/24 03:13 36.7 C 68 18 111/73 98 02/04/24 22:20 36.8 C 59 L 18 104/64 97 02/04/24 20:56 67 116/62 02/04/24 20:55 36.7 C 18 02/04/24 20:41 65 111/60 02/04/24 20:26 76 119/67 02/04/24 20:25 18 02/04/24 20:11 80 120/71 02/04/24 19:56 73 117/67 02/04/24 19:55 20 02/04/24 19:41 72 116/63 02/04/24 19:40 18 02/04/24 19:26 62 118/65 02/04/24 19:25 18 02/04/24 19:11 74 125/70 02/04/24 19:10 36.3 C L 18 02/04/24 18:47 71 123/65 02/04/24 18:38 106 H 94 02/04/24 18:34 76 97 02/04/24 18:29 79 98 02/04/24 18:28 79 94 02/04/24 18:23 68 98 02/04/24 18:21 62 94 02/04/24 18:18 65 95 02/04/24 18:17 62 114/69 02/04/24 18:14 68 94 02/04/24 18:13 63 95 02/04/24 18:08 66 95 02/04/24 18:07 65 94 O2 Del Method 02/05/24 03:13 Room Air 02/04/24 22:20 Room Air 02/04/24 20:56 02/04/24 20:55 02/04/24 20:41 02/04/24 20:26 02/04/24 20:25 02/04/24 20:11 02/04/24 19:56 02/04/24 19:55 02/04/24 19:41 02/04/24 19:40 02/04/24 19:26 02/04/24 19:25 02/04/24 19:11 02/04/24 19:10 02/04/24 18:47 02/04/24 18:38 02/04/24 18:34 02/04/24 18:29 02/04/24 18:28 02/04/24 18:23 02/04/24 18:21 02/04/24 18:18 02/04/24 18:17 02/04/24 18:14 02/04/24 18:13 02/04/24 18:08 02/04/24 18:07 Supervising Physician <Ela Matta MD - Last Filed: 02/05/24 07:11> Co-Signing Physician Notes Resident Physician Supervision Note: I interviewed and examined the patient. Discussed with Dr. Munoz and agree with findings and plan as documented in the note. Any exceptions or clarifications are listed here: PP1 s/p , doing well. VSS, exam benign and wnl. Desires dc at 24 hrs Documented By: Ela Matta MD Resident Activity Tracking <Sinan Munoz, DO - Last Filed: 02/05/24 06:08> Resident Involvement: Resident Care Provided Care Provided: OB Delivery
[2024-02-05] MEDS: FERROUS SULFATE 325 MG TAB PO SCH (08:08)
[2024-02-05] MEDS: PRENATAL VITAMIN 1 TAB PO SCH (08:08)
[2024-02-05] MEDS: BENZOCAINE 20% SPRY 85 APPLN/85 GM CAN EXT PRN (12:16)
[2024-02-05] MEDS ORDERED: bisacodyL 5 MG TABEC PO SCH (20:00)
== END 2024-02-05 18:50 | disposition home or self-care (01) | DRG 807 ==
LOC: 4S1 07:42 → 4E2 22:03